=== PATIENT | female | born 1955 | race Caucasian/White ===

== ENCOUNTER → 2019-08-13 12:00 | Outpatient (CLI) | payer MEDICARE | END | disposition home or self-care (01) | LOC: D.HCCARDIO 12:00 | PROVIDERS: ATTEND Internal Medicine Cardiovascular Disease | DX: I20.9 Angina pectoris, unspecified (principal) ==

== ENCOUNTER 2019-08-29 11:41 | Outpatient (CLI) | payer MEDICARE ==
[~2019-08-29] VITALS: Ht 160 cm; Wt 77.3 kg
--- NOTE | ~2019-08-29 | HEMODYNAMI ---
PATIENT:MATT SANCHEZ MEDICAL RECORD: [id number] : 51 LOCATION:[facility] ADMISSION DATE: 08/29/19 Generatedon:08/29/201914:38 Patient name: MATT SANCHEZ Patient #: [id number] SSN: : 1955 Date of study: 08/29/2019 Page: Of Hemodynamic Procedure Report Patient Data Patient Demographics Procedure consent was obtained First Name: MATT Gender: Female Last Name: DANIEL : 1955 Patient #: [id number] Age: 64 year(s) Race: Unknown SSN: [id number] Additional ID: [id number] Contact details [address]: [address] [place] [address] State: [place] City: [place] Zip code: [address] Past Medical History Allergies Allergen Reaction Date Comments Reported Other allergy 08/29/2019 sulfa Admission Admission Data Admission Date: 08/29/2019 Admission Time: 11:41 Arrival Date: 08/29/2019 Arrival Time: 0:00 Admit Source: Other Insurance Payor: Medicare [facility] #: [id number] Height (in.): 64 BSA: 1.83 (m2) Height (cm.): 162.56 BMI: 29.35 (kg/m2) Weight (lbs.): 171 Weight (kg.): 77.56 Lab Results Lab Result Date: 08/29/2019 Lab Result Time: 0:00 Biochemistry Name Units Result Min Max BUN mg/dl 14 --(--*-)-- 7 18 Creatinine mg/dl 0.8 --(-*--)-- 0.6 1.3 eGFR ml/min 76.17406 *-(----)-- 90 120 NONAFRICAN Procedure Procedure Types Cath Procedure Diagnostic Procedure LHC LHC w/Coronaries Sedation Charges Moderate Sedation up to 15 minutes Procedure Description Procedure Date Procedure Date: 08/29/2019 Procedure Start Time: 14:22 Procedure End Time: 14:36 Procedure Staff Name Function Javier Carnes MD Performing Physician Dunia Berrios RT Monitor Ari Schmitt RN Nurse John Mortensen RT Scrub Indication Chest pain Procedure Data Cath Procedure Fluoroscopy Diagnostic fluoroscopy Total fluoroscopy Time: 2.1 time: 2.1 min min Diagnostic fluoroscopy Total fluoroscopy dose: 592 dose: 592 mGy mGy Contrast Material Contrast Material Type Amount (ml) Isovue 300 56 Entry Location Entry Primary Successful Side Size Upsize Upsize Entry Closure Flynn ccessful Closure Location (Fr) 1 (Fr) 2 (Fr) Remarks Device Remarks Radial Right 6 Fr Mechanical artery Short Compression Estimated blood loss: 10 ml Diagnostic catheters Device Type Used For End Catheter Placement DIAGNOSTIC [place] 110cm 5 Procedure Fr catheter ([id number]) Procedure Complications No complications Procedure Medications Medication Administration Route Dosage 0.9% NaCl I.V. 100 ml/hr Oxygen etCO2 Nasal cannula 2 l/min Heparin Flush Bag added to field 1 bags (1000units/500ml NS) Lidocaine 2% added to field 20 Radial Cocktail added to field 1 syringe (Verapamil 2mg/Nitro 400mcg/Heparin 1500units) Versed I.V. 2 mg Fentanyl I.V. 100 mcg Versed I.V. 1 mg Radial Cocktail I.A. 1 syringe (Verapamil 2mg/Nitro 400mcg/Heparin 1500units) Hemodynamics Rest BSA: 1.83 (m2) O2 Consumption: Estimated: 182.51 (ml/min) O2 Consumption indexed : Estimated:99.73 (ml/min/m) Heart Rate: 87 (bpm) Pressure Samples Time Site Value (mmHg) Purpose Heart Use Rate(bpm) 14:26 LV 126/-9,8 Snapshot 87 Gradients Valve Time Site Site Mean SEP/DFP Peak To Heart Use 1 2 (mmHg) (sec/min) Peak Rate (mmHg) (bpm) Aortic 14:27 LV AO 97 Snapshots Pre Cath Intra NCS Post Cath Vital Signs Time Heart Resp SPO2 etCO2 NIBP (mmHg) Rhythm Pain Sedation Rate (ipm) (%) (mmHg) Status Level (bpm) 14:11:36 66 16 99 43.3 148/84(120) NSR 0 (11) 10(A) , No pain 14:15:50 75 11 96 44.1 140/83(113) NSR 0 (11) 10(A) , No pain 14:20:04 72 16 92 28.4 130/69(87) NSR 0 (11) 10(A) , No pain 14:24:11 78 12 91 29.1 136/81(111) NSR 0 (11) 9(A) , No pain 14:28:21 92 12 90 0 123/73(92) NSR 0 (11) 9(A) , No pain 14:32:31 90 13 94 41.8 129/68(93) NSR 0 (11) 10(A) , No pain 14:36:39 86 20 96 44.8 125/78(98) NSR 0 (11) 10(A) , No pain Medications Time Medication Route Dose Verified Delivered Reason Notes Effectiveness by by 14:09:53 0.9% NaCl I.V. 100 Ari Ari Per ml/hr Keshia Schmitt physician RN RN 14:10:02 Oxygen etCO2 2 l/min Ari Ari for low 02 Nasal Lorigan Keshia sats cannula RN RN 14:10:12 Heparin Flush added 1 bags Ari Ari used for Bag to Lorevelia Schmitt procedure (1000units/500ml field RN RN NS) 14:10:20 Lidocaine 2% added 20ml Ari Ari for local to vial Lorigan Lorigan anesthetic RN RN 14:10:32 Radial Cocktail added 1 Ari Ari used for (Verapamil to syringe Deniseigan Keshia procedure 2mg/Nitro field FLORES RN 400mcg/Heparin 1500units) 14:21:13 Versed I.V. 2 mg Ari Ari for sedation Keshia Schmitt RN RN 14:21:21 Fentanyl I.V. 100 mcg Ari Ari for sedation Keshia Schmitt RN RN 14:22:53 Versed I.V. 1 mg Ari Ari for sedation Keshia Schmitt RN RN 14:26:26 Radial Cocktail I.A. 1 Ari Javier for (Verapamil syringe Keshia nichole 2mg/Nitro RN 400mcg/Heparin 1500units) Procedure Log Time Note 13:59:01 Arrival Date: 08/29/2019 12:00:00 AM 13:59:30 Admit Source: Other 13:59:34 Insurance Payor : Medicare 13:59:47 Patient Height : 64 inches 13:59:53 Patient Weight : 171 lbs 14:03:01 Lab Result : BUN 14 mg/dl 14:03:01 Lab Result : eGFR NONAFRICAN 76.26807 ml/min 14:03:01 Lab Result : Creatinine 0.8 mg/dl 14:03:19 Diagnostic Cath Status : Elective 14:03:30 Indication : Chest pain 14:03:45 Procedure Status Elective Heart Cath (OP). 14:03:48 Ari Schmitt RN sent for patient. Start room use. 14:03:49 Time tracking: Regular hours (M-F 7:00 - 5:00) 14:03:55 Plan of Care:Hemodynamics will remain stable., Cardiac rhythm will remain stable., Comfort level will be maintained., Respiratory function will remain adequate., Patient/ family verbilizes understanding of procedure., Procedure tolerated without complication., Recovers from procedure without complications.. 14:04:01 Patient received from Pre/Post Procedure Room to CCL 2 Alert and oriented. Tansferred to table in Supine position. 14:04:04 Signed procedure consent form obtained from patient. 14:04:05 Warm blankets applied, and garcia hugger turned on for patient comfort. 14:04:05 Correct patient and procedure confirmed by team. 14:04:06 ECG and BP/O2 sat monitors applied to patient. 14:04:39 H&P Date Dictated: 08/06/2019 Within 30 days and on chart., H&P Addendum completed by physician on day of procedure. (MUST COMPLETE FOR ALL OUTPATIENTS). 14:04:40 Pre-procedure instructions explained to patient. 14:04:42 Family in waiting room. 14:04:44 Patient NPO since Midnight. 14:04:57 Patient allergic to Other allergysulfa 14:05:00 Is the patient allergic to Iodine/contrast media? No. 14:05:02 Was the patient premedicated? Yes 14:05:03 Is patient on blood thinner?No 14:05:05 Patient diabetic? No. 14:05:10 Snore? Yes 14:05:12 Sleep apnea? No 14:05:21 Patient pain scale 0/10 ?. 14:05:28 IV patent on arrival in left forearm with 0.9% NaCl at [facility]. 14:05:31 Lab results completed and on chart. 14:05:36 Right Radial & Right Groin area was prepped with chlora-prep and draped in sterile fashion 14:05:37 Alarms reviewed by R. N. 14:05:37 Sharps counted by scrub and verified by R.N. 14:09:53 0.9% NaCl 100 ml/hr I.V. was administered by Ari Schmitt RN; Per physician; Verbal order read back and verified. 14:10:02 Oxygen 2 l/min etCO2 Nasal cannula was administered by Ari Schmitt RN; for low 02 sats; Verbal order read back and verified. 14:10:12 Heparin Flush Bag (1000units/500ml NS) 1 bags added to field was administered by Ari Schmitt RN; used for procedure; Verbal order read back and verified. 14:10:20 Lidocaine 2% 20ml vial added to field was administered by Ari Schmitt RN; for local anesthetic; Verbal order read back and verified. 14:10:32 Radial Cocktail (Verapamil 2mg/Nitro 400mcg/Heparin 1500units) 1 syringe added to field was administered by Ari Schmitt RN; used for procedure; Verbal order read back and verified. 14:10:35 Vital chart was started 14:13:33 Physician arrived 14:13:33 --------ALL STOP TIME OUT------ 14:13:34 Final Timeout: patient, procedure, and site verified with staff and physician. All members of the team are in agreement. 14:13:36 Right Radial & Right Groin site verified by team. 14:13:41 Fire Safety Assessment: A--An alcohol-based skin anteseptic being used preoperatively., C--Open oxygen or nitrous oxide is being used., D--An ESU, laser, or fiber-optic light is being used. 14:13:47 Physical assessment completed. ASA score P 3 - A patient with severe systemic disease as per Javier Carnes MD. 14:13:50 2) 60-89 Mildly reduced kidney function, and other findings (as for stage 1) point to kidney disease. 14:13:54 Maximum allowable contrast dose (3.7 X eGFR X 0.75)210 ml. 14:13:59 Sedation plan: IV Moderate Sedation Medication:Versed, Fentanyl 14:14:03 Use device set Radial Dx or PCI 14:14:05 ACIST Syringe (56179) opened to sterile field. 14:14:05 Medline Cath Pack ([id number]) opened to sterile field. 14:14:06 Bag Decanter (2002S) opened to sterile field. 14:14:07 ACIST Hand Control (05530) opened to sterile field. 14:14:07 ACIST Manifold (93342) opened to sterile field. 14:14:09 MBrace Wrist Support ([id number]) opened to sterile field. 14:14:10 NEEDLE Cook 21G 4cm Radial (G00845) opened to sterile field. 14:14:12 EMERALD Guide Wire (502-751) opened to sterile field. 14:14:14 SHEATH 6FR RAIN (4471186) opened to sterile field. 14:21:13 Versed 2 mg I.V. was administered by Ari Schmitt RN; for sedation; Verbal order read back and verified. 14:21:21 Fentanyl 100 mcg I.V. was administered by Ari Schmitt RN; for sedation; Verbal order read back and verified. 14::44 Procedure started. 14::44 Full Disclosure recording started 14:22:53 Versed 1 mg I.V. was administered by Ari Schmitt RN; for sedation; Verbal order read back and verified. 14:22:55 Local anesthetic to right radial artery with Lidocaine 2% by Javier Carnes MD.INITIAL ACCESS ONLY 14:26:23 A 6 Fr Short sheath was inserted into the Right Radial artery 14:26:26 Radial Cocktail (Verapamil 2mg/Nitro 400mcg/Heparin 1500units) 1 syringe I.A. was administered by Javier Carnes MD; for vasodilation; Verbal order read back and verified. 14:26:36 A DIAGNOSTIC [place] 110cm 5 Fr catheter (196729) was advanced over the wire and used for Procedure. 14:27:07 EF : 60 % 14:27:39 LCA angiography performed. 14:30:26 RCA angiography performed. 14:32:59 Catheter removed. 14:33:04 ZEPHYR REGULAR TR BAND (493000) opened to sterile field. 14:33:21 Sheath removed intact; hemostasis achieved with Mechanical Compression to the Right Radial artery. 14:33:31 Procedure ended.(Physican Out) 14:33:38 Fluoroscopy time 02.10 minutes. 14:33:42 Flurop Dose total: 592 14:33:42 Fluoroscopy dose: 592 mGy 14:33:47 Dose Area Product 84363 mGy/cm. 14:33:52 Contrast amount:Isovue 300 56ml. 14:34:05 Maximum allowable dose exceeded? No. 14:34:08 Sharps counted by scrub and verified by R.N. 14:34:13 [place] band inflated with 56cc of air. 14:34:14 Insertion/operative site no bleeding no hematoma. 14:34:34 Post right radial artery:stable 14:34:45 Post-procedure physical assessment completed. ASA score P 3 - A patient with severe systemic disease as per Javier Carnes MD. 14:34:49 Post procedure rhythm: sinus rhythm 14:34:52 Estimated blood loss: 10 ml 14:34:54 Post procedure instruction explained to patient.Patient verbalizes understanding. 14:35:23 Procedure type changed to Cath procedure, Diagnostic procedure, LHC, LHC w/Coronaries, Sedation Charges, Moderate Sedation up to 15 minutes 14:35:25 Procedure and supply charges have been captured, reviewed, submitted and are correct. 14:35:48 Procedure Complication : No complications 14:35:53 Vital chart was stopped 14:35:56 [facility] Findings: MVD- MD will discuss options w/ pt 14:36:05 See physician's report for complete and final results. 14:36:07 Report given to Pre/Post Procedure Room. 14:36:12 Patient transfered to Pre/Post Procedure Room with Stretcher. 14:36:14 Procedure ended. 14:36:14 Full Disclosure recording stopped 14:36:29 End room use (Document Last) 14:36:51 End room use (Document Last) 14:37:28 End room use (Document Last) Device Usage Item Name Manufacture Quantity Catalog Hospital Part Current Minima l Lot# / Number Charge Number Stock Stock Serial# Code ACIST Acist 1 99650 506146 544190 [id number] 20 Syringe Medical (69700) Systems Inc Medline Medline 1 [id number] 453166 07878 588878 5 Cath Pack ([id number]) Bag Microtek 1 249706 12364 905497 5 Decanter Medical Inc. () ACIST Hand Acist 1 91437 575054 175986 043444 5 Control Medical (09491) Systems Inc ACIST Acist 1 78219 497046 024484 897182 5 Manifold Medical (73295) Systems Inc MBrace Advanced 1 140-0250-00 324686 08344 835860 5 Wrist Vascular Support Dynamics (313559272) NEEDLE Cook Cook Medical 1 D82437 697892 194665 854320 5 21G 4cm Radial (T85896) EMERALD Cardinal 1 171-485 904718 011546 467912 5 Guide Wire Health (397-219) SHEATH 6FR Cardinal 1 4976489 220630 8872343 891012 5 RAIN Health (6381172) DIAGNOSTIC Terumo 1 40-4456 281958 223567 129825 5 [place] 110cm 5 Fr catheter (910138) ZEPHYR Cardinal 1 589940 038562 6717888 686995 5 REGULAR TR Health BAND (801598) Signature Audit Nunn Stage Time Signature Unsigned Intra-Procedure 08/29/2019 Dunia Berrios 2:36:51 PM RT(R) Intra-Procedure 08/29/2019 Ari 2:37:28 PM Keshia RN Intra-Procedure 08/29/2019 Javier Carnes MD 2:37:57 PM Signatures Performing Physician : Signature : Javier Carnes MD Date : Time : Monitor : Dunia Berrios Signature : RT Date : Time : Nurse : Ari Schmitt Signature : RN Date : Time : [facility] [address], [place] [address]
[2019-08-29] MEDS ORDERED: LEVOTHYROXINE50 MCG PO (11:59)
[2019-08-29] MEDS ORDERED: LISINOPRIL5 MG PO (12:00)
[2019-08-29] MEDS ORDERED: TRAZODONE HCL150 MG PO (12:00)
[2019-08-29] MEDS ORDERED: ZOLOFT100 MG PO (12:00)
[2019-08-29] MEDS ORDERED: OMEPRAZOLE20 M1 PO (12:01)
[2019-08-29] MEDS ORDERED: LOVASTATIN40 MG PO (12:01)
[2019-08-29 12:45] VITALS: BP 145/95; BMI 30.1
[2019-08-29 12:55] LABS: ALT (SGPT) 39 U/L (10-68); CALC OSMOLALITY 282 mosm/kg (275-300); CALCIUM 8.6 mg/dL (8.5-10.1); CARBON DIOXIDE 26.2 mmol/L (21.0-32.0); CHLORIDE - SERUM 106 mmol/L (98-107); CHOL - HDL RATIO 3.6 ratio (2.3-4.1); CHOLESTEROL, TOTAL 214 mg/dL (0-200); CREATININE - SERUM 0.8 mg/dL (0.6-1.3); GLUCOSE 108 mg/dL (74-106); HDL CHOLESTEROL 59 mg/dL (32-96); LDL CHOLESTEROL 131 mg/dL (0-100); LDL-HDL RATIO 2.2 ratio (1.5-3.5); POTASSIUM - SERUM 3.9 mmol/L (3.5-5.1); SODIUM 141 mmol/L (136-145); TRIGLYCERIDE 120 mg/dL (30-200); UREA NITROGEN 14 mg/dL (7-18); eGFR NON AFRICAN AMERICAN 76 mL/min (90-120)
[2019-08-29 13:08] LABS: BASOPHILS 0.5 % (0-2); HEMOGLOBIN 13.6 g/dL (12-16); LYMPHOCYTES 33.3 % (15-50); MCH 30.5 pg (26.0-34.0); MCHC 32.4 g/dL (31.0-37.0); MCV 94.2 fL (80.0-100.0); MEAN PLATELET VOLUME 9.6 fL (7.4-10.4); MONOCYTES 8.5 % (2-11); NEUTROPHILS 55.7 % (40-80); PLATELET COUNT 247 10x3/uL (130-400); RBC 4.46 10x6/uL (4.00-5.40); RDW 12.1 % (11.5-14.5); WBC 5.6 10x3/uL (4.8-10.8)
--- NOTE | 2019-08-29 14:45 | NUR ---
PT REC'D TO ROOM 9 VIA STRETCHER FROM DIRECTOR OF GLOBAL SALES. MONITORS ESTAB. PT DROWSY. SEE CERTIFIED MORTICIAN. ALARMS ON AND C/L IN REACH.
--- NOTE | 2019-08-29 15:00 | NUR ---
DR. DORADO IN TO UPDATE PT AND . DR. LAURA NURSE NOTIFIED OF CONSULT. R WRIST SITE C/D/I, NO S/S BLEEDING OR HEMATOMA.
--- NOTE | 2019-08-29 15:30 | NUR ---
R WRIST SITE C/D/I. PULSES PALP. HOB UP PER PT REQUEST. REFUSED SANDWICH AT THIS TIME. AT BS.
--- NOTE | 2019-08-29 15:45 | NUR ---
R WRIST SITE C/D/I, HAND WARM, PULSES PALP. VSS. PT DENIES NEEDS.
--- NOTE | 2019-08-29 16:00 | NUR ---
5CC AIR REMOVED FROM Z BAND, NO S/S BLEEDING OR HEMATOMA. VSS. PT DENIES NEEDS.
--- NOTE | 2019-08-29 16:15 | NUR ---
TOTAL OF 7 CC REMOVED FROM Z BAND, NO S/S BLEEDING. VSS. R HAND WARM WITH BRISK CAP REFILL.
--- NOTE | 2019-08-29 16:19 | NUR ---
DR. LAURA IN TO SEE PT.
--- NOTE | 2019-08-29 16:30 | NUR ---
ALL AIR REMOVED FROM Z BAND, NO S/S BLEEDING - WILL CONT CLOSE MONITORING. PT HAS SPOKEN WITH DR. LAURA AND HIS NURSE RE: SURGERY, WILL FOLLOW UP WITH THEM.
--- NOTE | 2019-08-29 16:45 | NUR ---
R WRIST SITE C/D/I. ZBAND REMOVED AND DSG APPLIED. PIV D/C'D INTACT, DSG APPLIED. PT ALLOWED UP TO GET DRESSED WITH ASSISTING.
[2019-08-29 16:48] VITALS: Ht 160 cm; Wt 77.3 kg
--- NOTE | 2019-08-29 16:50 | NUR ---
PT TO BR INDEPENDENTLY.
--- NOTE | 2019-08-29 16:58 | NUR ---
ALL D/C INSTRUCTIONS REVIEWED WITH PT AND . PT VERBALIZES UNDERSTANDING. 1700 - PT D/C'D TO PRIVATE VEHICLE WITH , PT HAS ALL PAPER WORK AND BELONGINGS.
== END 2019-08-29 17:00 | disposition home or self-care (01) ==
LOC: D.CATH 11:41
PROVIDERS: ATTEND Internal Medicine Cardiovascular Disease
DX: I25.119 Atherosclerotic heart disease of native coronary artery with unspecified angina pectoris (principal); Z82.49 Family history of ischemic heart disease and other diseases of the circulatory system; I10 Essential (primary) hypertension; K21.9 Gastro-esophageal reflux disease without esophagitis

== ENCOUNTER 2019-09-06 07:52 | Inpatient (IN) | payer MEDICARE ==
[~2019-09-06] VITALS: Ht 160 cm; Wt 76.1 kg
[~2019-09-06 07:52] MED LIST: LEVOTHYROXINE50 MCG PO; LISINOPRIL5 MG PO; LOVASTATIN40 MG PO; OMEPRAZOLE20 M1 PO; TRAZODONE HCL150 MG PO; ZOLOFT100 MG PO
[2019-09-07 09:37] LABS: BASOPHILS 0.6 % (0-2); EOSINOPHILS 2.5 % (0-7); HEMATOCRIT 43.5 % (36.0-48.0); HEMOGLOBIN 14.2 g/dL (12-16); IMMATURE GRANULOCYTES 0.2 % (0-5); LYMPHOCYTES 41.3 % (15-50); MCH 30.4 pg (26.0-34.0); MCHC 32.6 g/dL (31.0-37.0); MCV 93.1 fL (80.0-100.0); MEAN PLATELET VOLUME 9.4 fL (7.4-10.4); MONOCYTES 7.3 % (2-11); NEUTROPHILS 48.1 % (40-80); PLATELET COUNT 256 10x3/uL (130-400); RBC 4.67 10x6/uL (4.00-5.40); RDW 12.1 % (11.5-14.5); WBC 5.2 10x3/uL (4.8-10.8)
[2019-09-07 09:54] LABS: APTT 27.3 SECONDS (22.8-39.4); INR 0.94 (0.85-1.17); PROTIME 12.6 SECONDS (11.6-15.0)
[2019-09-07 10:06] LABS: ALBUMIN 4.2 g/dL (3.4-5.0); ANION GAP 12.1 mmol/L (8-16); BILIRUBIN - TOTAL 0.49 mg/dL (0.2-1.3); CALCIUM 8.9 mg/dL (8.5-10.1); CARBON DIOXIDE 28.1 mmol/L (21.0-32.0); PHOSPHOROUS 3.7 mg/dL (2.5-4.9); POTASSIUM - SERUM 4.2 mmol/L (3.5-5.1); PROTEIN - SERUM 7.7 g/dL (6.4-8.2); T4 THYROXIN - FREE 1.14 ng/dL (0.76-1.46); THYROID STIMULATING HORMONE 1.09 uIU/mL (0.36-3.74); URIC ACID 3.4 mg/dL (2.6-7.2)
[2019-09-07 10:25] LABS: BILIRUBIN NEGATIVE (NEGATIVE); GLUCOSE NEGATIVE (NEGATIVE); KETONE NEGATIVE (NEGATIVE); NITRITE NEGATIVE (NEGATIVE); SPECIFIC GRAVITY 1.025 (1.005-1.020); UROBILINOGEN NORMAL (NORMAL)
[2019-09-07 10:27] LABS: BACTERIA FEW /hpf (NEGATIVE); EPITHELIAL CELLS 0-5 /hpf (0-5); RED CELLS - URINE RARE /hpf (0-5); WHITE CELLS - URINE 0-5 /hpf (NEGATIVE)
[2019-09-11] VITALS (41 sets, daily range): BP systolic 96–150; BP diastolic 49–77; BMI 29.6; BMI 31.2
[2019-09-11 08:39] LABS: BACTERIA FEW /hpf (NEGATIVE); BILIRUBIN NEGATIVE (NEGATIVE); EPITHELIAL CELLS 0-5 /hpf (0-5); GLUCOSE NEGATIVE (NEGATIVE); KETONE NEGATIVE (NEGATIVE); NITRITE NEGATIVE (NEGATIVE); RED CELLS - URINE 0-5 /hpf (0-5); SPECIFIC GRAVITY 1.015 (1.005-1.020); UROBILINOGEN NORMAL (NORMAL); WHITE CELLS - URINE RARE /hpf (NEGATIVE)
[2019-09-11 08:40] LABS: HYALINE CAST RARE /lpf (NONE SEEN)
--- NOTE | 2019-09-11 14:50 | NUR ---
1350 PT RECIEVED TO ROOM ETT 7.5 22 AT LIP PLACED ON VENT BY RT, R IJ CVL DRESSING CDI, SEE IV FLOWSHEET, MIDSTERNAL AND SUBSTERNAL DRESSINGS CDI WITH SUBSTERNAL SIDNEY DRAIN COMPRESSED, CTX2 20CM SUCTION NO AIR LEAK, TPM WIRES ATTACHED TO TPM, TPM OFF, R RADIAL A LINE ZEROED, GOOD WAVEFORM, WRIST PROTECTOR IN PLACE, RLE HARVEST SITES WITH COBAN GROIN TO ANKLE, CRITICORE LEOS DRAINING YELLOW URINE, LLE WITH TEDS/SCDS IN PLACE ABGS CALLED TO DR LAURA, KCL TREATED PER PROTOCOL
--- NOTE | 2019-09-11 15:30 | NUR ---
SPOKE WITH DR AG NURSE HOLLY ABOUT HOLDING AMIODARONE PT DID NOT COME OUT OF OR WITH IT
--- NOTE | 2019-09-11 16:23 | NUR ---
PTS IN ROOM AND DENIES ALLQUESTIONS, SPOKE WITH DR LAURA
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
--- NOTE | 2019-09-11 17:08 | NUR ---
ABGS NIF AND VITAL CALLED TO DR LAURA, ORDERS TO EXTUBATE TO CPAP, RT AWARE
--- NOTE | 2019-09-11 17:24 | NUR ---
PT EXTUBATED AND RESTRAINTS REMOVED 1719, DEMONSTRATED SPLINTING WITH PILLOW, WEAK COUGH, PERFORMED IS WITH POOR EFFORT, 250, PLACED ON BIPAP BY RT
--- NOTE | 2019-09-11 19:00 | NUR ---
PT AOX4, FOLLOWS COMMANDS. BIPAP IN PLACE AT 30%, SPO2 96. LUNG SOUNDS CLEAR/DIMINISHED. S1S2 HEARD, PERIPHERAL PULSES PRESENT. DEVIN TO R RADIAL WITH GOOD WAVEFORM. SUBSTERNAL CT X2 INTACT WITH BLODDY DRAINAGE, L SIDNEY INTACT AND COMPRESSED. R LEG WITH COBAN FROM GROIN TO ANKLE. PT POSITIONED FOR COMFORT, PROMINENCES BRIDGED. ROOM VISIBLE FROM NURSES STATION. CALL LIGHT WITHIN PT REACH.
--- NOTE | 2019-09-11 21:05 | NUR ---
HS MEDS GIVEN, PT TOLERATED WELL. REPOSITIONED FOR COMFORT WITH PROMINENCES BRIDGED. COUGH/DB - WEAK COUGH DESPITE TEACHING/ENCOURAGEMENT. PT COMPLETES I/S AFTER TEACHING PROVIDED ON IMPORTANCE, REACHING 250 X10. ORAL CARE PROVIDED. VSS, ROOM VISIBLE FROM NURSES STATION. CPOC.
--- NOTE | 2019-09-11 22:22 | NUR ---
WITH ENCOURAGEMENT PT COUGH/DB, WEAK COUGH. PT TEACHING REGARDING IMPORTANCE OF INCENTIVE SPIROMETER PROVIDED AGAIN AT THIS TIME. PT REACHING 250 X10 WITH ENCOURAGEMENT.
--- NOTE | 2019-09-11 23:00 | NUR ---
DANGLED AT BEDSIDE, COUGH/DB WITH ENCOURAGEMENT. POSITIONED BACK IN BED WITH PROMINENCES BRIDGED. REASSESMENT COMPLETE, NO NEW CHANGES AT THIS TIME. CALL LIGHT WITHIN PT REACH. ROOM VISIBLE FROM NURSES STATION. CPOC.
[2019-09-12] VITALS (48 sets, daily range): BP systolic 89–120; BP diastolic 45–71; Ht 160 cm; Wt 76.1 kg
--- NOTE | 2019-09-12 01:12 | NUR ---
PRN PAIN MEDICATION PROVIDED UPON REQUEST PAIN 10/18. FRESH WATER TO BEDSIDE. COUGH/DB ENCOURAGED, POOR EFFORT. I/S COMPLETED REACHING 250 X10.
--- NOTE | 2019-09-12 04:00 | NUR ---
COMPLETE CHG BATH AND LINEN CHANGE PROVIDED. UP TO CHAIR WITH RN X2 ASSIST. COUGH/DB COMPLETED, I/S COMPLETED REACHING 500 X10.
[2019-09-12 05:43] LABS: HEMATOCRIT 34.5 % (36.0-48.0); HEMOGLOBIN 10.9 g/dL (12-16); MCH 30.4 pg (26.0-34.0); MCHC 31.6 g/dL (31.0-37.0); MCV 96.1 fL (80.0-100.0); MEAN PLATELET VOLUME 9.5 fL (7.4-10.4); RBC 3.59 10x6/uL (4.00-5.40); RDW 12.7 % (11.5-14.5); WBC 11.5 10x3/uL (4.8-10.8)
[2019-09-12 05:46] LABS: ALBUMIN 3.3 g/dL (3.4-5.0); ANION GAP 12.5 mmol/L (8-16); BILIRUBIN - TOTAL 0.35 mg/dL (0.2-1.3); CALCIUM 7.1 mg/dL (8.5-10.1); CARBON DIOXIDE 26.8 mmol/L (21.0-32.0); CREATININE - SERUM 1.1 mg/dL (0.6-1.3); POTASSIUM - SERUM 4.3 mmol/L (3.5-5.1); PROTEIN - SERUM 5.8 g/dL (6.4-8.2)
--- NOTE | 2019-09-12 07:00 | NUR ---
RECEIVED BEDSIDE REPORT ON PATIENT AND ASSUMED CARE. PATIENT ALERT AND ORIENTED X 4, SITTING UP IN BEDSIDE CHAIR, VSS. RATE PAIN 8/10, INCREASED WHEN TAKING DEEP BREATHS, IS - 300, LEOS CATH IN PLACE WITH 0 ML OUTPUT FOR 7 AM NOTED. CHEST TUBES X 2 TO 20 CM WALL SUCTION, A- 16 ML OF BLOODY DRAINAGE NOTED, P - 0 ML DRAINAGE NOTED AND SIDNEY DRAIN WITH 10 ML OF BLOODY DRAINAGE NOTED. RIGHT IJ IN PLACE WITH PLASMOLYTE INFUSING AT 100 ML/HR AND ZINACEF AT 12.8 ML/HR. CM - ST RATE OF 104 NO ECTOPY NOTED. BBS - CLEAR BUT DIMISHED, SPO2 - 97% ON 4 LPM VIA NC. DRESSINGS MIDSTERNAL AND SUBSTERNAL, C/D/I. RLE DRESSING IN PLACE WITH COBAN WRAP, C/D/I. HEAD TO TOE ASSESSMENT COMPLETED.
--- NOTE | 2019-09-12 08:00 | NUR ---
ASSISTED BACK TO BED FOR DR. LAURA TO REMOVE CHEST TUBES.
--- NOTE | 2019-09-12 08:10 | OP ---
PATIENT NAME: MATT SANCHEZ MEDICAL RECORD: [id number] :51 LOCATION:D.CVI D.CV04 ADMISSION DATE:09/11/19 SURGEON: JACE LAURA MD DATE OF OPERATION: 09/11/2019 SURGEON: Jace Laura MD PROCEDURE PERFORMED: 1. Coronary bypass graft times 3 (left internal mammary to first diagonal, reverse saphenous vein graft from aorta to first obtuse marginal, aorta to right coronary artery). 2. Endoscopic saphenous vein harvest. PREOPERATIVE DIAGNOSIS: Coronary artery disease. POSTOPERATIVE DIAGNOSIS: Coronary artery disease. ANESTHESIA: General endotracheal anesthesia. ESTIMATED BLOOD LOSS: Total cardiopulmonary bypass with Cell Saver retransfusion. COMPLICATIONS: None. SPECIMENS: None. CONDITION: Stable. DISPOSITION: CV ICU. OPERATIVE FINDINGS: 1. Small thin greater saphenous vein from the mid-thigh to the knee. The best portion was used for the right coronary artery graft. The right internal mammary artery was not used due to probable competitive flow and presumed small size as the left internal mammary artery was only 2-3 mm. The LAD was a small intramyocardial vessel that only came out at the last one-third and it was followed back deep into the intramyocardium, but was only a 1.25 mm vessel. The bifurcating large diagonal ran parallel and was much larger anastomosed at the bifurcation where it was a 1.75 mm vessel utilizing the left internal mammary artery. This vessel had severe disease at the site of anastomosis and proximally. First obtuse marginal is 1.5 mm vessel with severe disease. 2. Right coronary 2.0 mm vessel with moderate disease. 3. 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 OPERATIVE INDICATION: Coronary artery disease. DESCRIPTION OF PROCEDURE: The patient was brought to the operating suite. General anesthesia was obtained, the patient was prepped and draped. Greater saphenous vein harvested endoscopically from right lower extremity. Side branch divided with electrocautery. Vessel ligated proximally and distally removed. Side branches were tied. The leg was closed in 2 layers. Median sternotomy incision was made. Subcutaneous tissues was divided by electrocautery. The sternum was divided with a saw. The left hemisternum was elevated. Left pleural cavity was entered. Left internal mammary was taken OPERATIVE REPORT [id number] MATT SANCHEZ down as a pedicle graft. Sternal retractor was placed. Pericardium was opened. Heparin was given. Aorta was cannulated. Dual stage venous cannula was inserted. The patient was placed for cardiopulmonary bypass. The sites for distal anastomosis were selected. The patient was cooled. Crossclamp was placed. Cardioplegia given antegrade and this repeated at 15 to 20 minutes on the crossclamp time. Distal anastomosis was performed in standard technique. Proximal anastomosis with single cross-clamp technique. Aortic root de-aired, flow restored, single suture, one of the proximal and one on the distal. The patient resumed a spontaneous rhythm. Atrial and ventricular pacing wires were placed, fully rewarmed, weaned for cardiopulmonary bypass, and was stable. The patient was decannulated. Aortic cannulation site was oversewn with a nonpledgeted Prolene suture. The protamine was given. Thorough irrigation was undertaken. Grafts lay appropriately. Good Doppler signal in the internal mammary artery. The hemostasis was ensured. Drains were placed in mediastinal left pleural cavity. Pericardial flap reapproximated. Left chest was evacuated as much as possible and a drain placed posteriorly. The internal mammary harvest site was without bleeding. Sternum was closed with wires. Fascia was closed. Subcutaneous tissue was closed. Skin was closed. Dermabond was placed. The needle and sponge counts were reported as correct. The patient was taken to ICU in stable condition. TRANSINT:[id number] Voice Confirmation ID: [id number] DOCUMENT ID: [id number] JACE LAURA MD at 0810 CC: FUAD DORADO M.D. and MALCOM MARTINEZ MD [id number] DICTATION DATE: 09/11/19 1610 COVERED BUTTON MAKER: 09/12/19 0317 ADM IN [facility] [address] [place] [address]
--- NOTE | 2019-09-12 08:15 | NUR ---
DR. LAURA AT ROOM UPDATED AND EXAMINES PATIENT, VSS. REMOVES CT'S, TPM WIRES IN PLACE AND SIDNEY DRAIN REMAINS, REDRESSED WITH 4X4 AND TEGADERM WITH BETADINE OINTMENT.
--- NOTE | 2019-09-12 08:40 | NUR ---
MORNING MEDS PER MAR. VSS.
--- NOTE | 2019-09-12 09:14 | NUR ---
PATIENT RESTING QIETLY, EYES CLOSED. VSS.
--- NOTE | 2019-09-12 11:20 | NUR ---
REASSESSMENT COMPLETED. VSS. ART LINE DISCONTINUED, DIRECT PRESSURE HELD FOR 3 MINUTES AND DRESSED WITH BETADINE, 2X2 AND TEGADERM DRESSING.
--- NOTE | 2019-09-12 12:21 | NUR ---
PATIENT RESTING QUIETLY, VSS. SPOKE TO ON TELEPHONE UPDATED AND QUESTIONS ANSWERED.
--- NOTE | 2019-09-12 12:32 | NUR ---
PATIENTS HR UP TO 130'S APPEARS TO BE A-FIB, HEIDI RN WITH DR. LAURA NOTIFIED AND 12 LEAD ECG COMPLETED.
--- NOTE | 2019-09-12 13:30 | NUR ---
PATIENT RESTING QUIETLY IN BED. HR 114. NO NEEDS AT THIS TIME.
--- NOTE | 2019-09-12 13:33 | NUR ---
DR. LAURA AT ROOM UPDATED AND EXAMINES PATIENT. TO GIVE LOADING DOSE OF AMIODARONE AND THE AMIODARONE GTT AT 0.5 MG/HR. ALSO TO START LOW DOSE NEOSYNEPHRINE GTT TO KEEP SYSTOLIC BP BETWEEN 115-120.
--- NOTE | 2019-09-12 16:12 | NUR ---
PATIENT GIVEN PRN PAIN MED, C/O PAIN 07/19. VSS. FSBS - 151 MG/DL.
--- NOTE | 2019-09-12 16:40 | NUR ---
DR. LAURA AT ROOM UPDATED ON PATIENT CONDITION, CM - ST RATE 102, PLASMOLYTE DECREASED TO 30 ML/HR. VSS.
--- NOTE | 2019-09-12 16:45 | NUR ---
PATIENT STATES DOES NOT WANT DINNER TRAY, ADVISES THAT SHE HAS NO APPETITE.
--- NOTE | 2019-09-12 17:31 | NUR ---
SPOKE TO PATIENTS , UPDATED AND QUESTIONS ANSWERED. VSS.
--- NOTE | 2019-09-12 17:55 | NUR ---
PATIENT DANGLED ON SIDE OF BED, TOLERATED WELL. VSS.
--- NOTE | 2019-09-12 18:19 | NUR ---
DRESSINGS TO BILATERAL LEGS CHANGED. PATIENT ASSISTED BACK TO BED. VSS. NO NEEDS AT THIS TIME.
--- NOTE | 2019-09-12 19:00 | NUR ---
REPORT RECEIVED FROM THE OFF GOING RN. SEE ASSESSMENT IN THE PTS FLOW SHEET. PT SITTING IN BED. PT AFIB RATE 90-110. BP STABLE. RIGHT IJ CVL NOTED. SEE FLOW SHEET FOR DETAILS. MIDSTERNAL AND SUBSTERNAL DRESSING C/D/I. LEFT SIDNEY NOTED COMPRESSED WITH SCANT AMOUNT OF SEROUSANG DRAINGE NOTE. RLE HARVEST SITE INCISIONS WLL APPROXIMATED. SUPERVISOR PRINT LINE AND NO S/SX OF INFECTION NOTED. PT INSTURCTED TO USE HER IS 10X'S/H. PT ONLY ABOUT TO PULL ABOUT 500. WILL CONT TO WORK WITH THE PT ON HER IS. CALL LIGHT IN REACH. WILL CONT POC.
--- NOTE | 2019-09-12 20:00 | NUR ---
PT CONVERTED TO A NSR. VSS. WILL CONT OC.
--- NOTE | 2019-09-12 20:44 | NUR ---
HS MEDICATION GIVEN WITH NO ISSUES. WILL CONT POC.
--- NOTE | 2019-09-12 23:00 | NUR ---
REASSESSMENT COMPLETED SEE FLOW SHEET/MAR
[2019-09-13] VITALS (59 sets, daily range): BP systolic 91–133; BP diastolic 28–91
--- NOTE | 2019-09-13 00:57 | NUR ---
PT WENT INTO UNCONTROLLED AFIB RATE 140-150'S. DR LAURA PAGED. NEW ORDERS TO INCREASE AMIO GTT TO 1MG/H FOR 6 HOURS THEN DECREASE TO 0.5MG/H. GIVE AMIO 150 BOLUS NOW.
--- NOTE | 2019-09-13 02:02 | NUR ---
MAININTING FIB RATE 140-150'S. DR LAURA PAGED. GIVE 2.5 IV LOPRESSOR NOW. CALL IF STILL MAINING HIGH RATE.
--- NOTE | 2019-09-13 02:53 | NUR ---
REMAINS IN AFIB RATE BELOW 120.
[2019-09-13 05:51] LABS: HEMATOCRIT 29.8 % (36.0-48.0); HEMOGLOBIN 9.2 g/dL (12-16); MCHC 30.9 g/dL (31.0-37.0); MCV 97.1 fL (80.0-100.0); MEAN PLATELET VOLUME 9.7 fL (7.4-10.4); RBC 3.07 10x6/uL (4.00-5.40); WBC 12.5 10x3/uL (4.8-10.8)
[2019-09-13 06:22] LABS: ALBUMIN 2.6 g/dL (3.4-5.0); ALKALINE PHOSPHATASE 46 U/L (30-120); BILIRUBIN - TOTAL 0.35 mg/dL (0.2-1.3); CALC OSMOLALITY 278 mosm/kg (275-300); CALCIUM 7.3 mg/dL (8.5-10.1); CARBON DIOXIDE 30.9 mmol/L (21.0-32.0); CHLORIDE - SERUM 105 mmol/L (98-107); GLUCOSE 150 mg/dL (74-106); POTASSIUM - SERUM 4.2 mmol/L (3.5-5.1); PROTEIN - SERUM 5.3 g/dL (6.4-8.2); SODIUM 138 mmol/L (136-145); UREA NITROGEN 13 mg/dL (7-18); eGFR NON AFRICAN AMERICAN 76 mL/min (90-120)
[2019-09-13 06:24] LABS: ALT (SGPT) 59 U/L (10-68); CREATININE - SERUM 0.8 mg/dL (0.6-1.3)
--- NOTE | 2019-09-13 08:09 | TEE ---
PATIENT:MATT SANCHEZ MEDICAL RECORD: [id number] LOCATION:[place] [address] AGE OF PATIENT: 64 ADMISSION DATE: 09/11/19 SEX: F REFERRING PHYSICIAN: INTERPRETING PHYSICIAN: ROCKY OVALLE MD TRANSESOPHAGEAL ECHOCARDIOGRAM Date: 09/11/19 EILEEN CHARGE Y INDICATIONS: CABG PREMEDICATIONS: PATIENT'S RESPONSE PROCEDURE DOPPLER MEASUREMENTS: LVIT LA PA RA LVOT RVOT Asc. Ao AV Gradient Peak AV Mean AV Area MV Gradient Peak MV Mean MV Area INTERPRETATION: LVd: 3.5 cm LVs: 2.8 cm LA: 3.1 cm Doppler: 2-D: COLOR FLOW DOPPLER NORMAL SALINE STUDY: MISCELLANOUS: DIAGNOSIS: PLAN: Senior Business Broker:Dinesh Carnes Photo Equipment Technician: Philly PINA COMMENTS: DATE OF SERVICE: 09/12/2019 PROCEDURE: Intraoperative EILEEN. FINDINGS: Preop shows LVH. LV internal dimensions are normal. Wall motion is normal. EF is greater than or equal to 55%. Aortic valve is tricuspid with good valve excursion. Mitral valve moves well with a trivial MR. Postoperative good contractility of all freitas with normal EF 55%. Aortic and mitral valve both appeared to be normal. Trivial MR only. TRANSESOPHAGEAL ECHOCARDIOGRAM REPORT [id number] MATT SANCHEZ TRANSINT:[id number] Voice Confirmation ID: [id number] DOCUMENT ID: [id number] at 0809 CC: [id number] DICTATION DATE: 09/12/19 1114 AMERICAN SIGN LANGUAGE TEACHER: 09/12/19 2137 ADM IN [place] [id number] [place] [address]
--- NOTE | 2019-09-13 09:27 | NUR ---
0700 PT RECIEVED IN BED ALERT AND ORIENTED VSS DENIES PAIN R IJ CVL DRESSING CDI, SEE IV FLOWSHEET, SIDNEY DRAIN COMPRESSED, TPM WIRES COILED, LEOS DRAINING YELLOW URINE, SEE SHIFT ASSESSMENT FOR DETAILS [address] LAURA HOLDING AM LOPRESSOR REFUSED BREAKFAST TRAY ATTEMPTED TO CALL FOR GLASSES
--- NOTE | 2019-09-13 13:02 | NUR ---
0930 PT IN NSR, DR VALENTÍN LORENZANA NOTIFIED 1030 ASSISTED UP TO CHAIR WITH THERAPY 1200 ATE 25% LUNCH
--- NOTE | 2019-09-13 19:00 | NUR ---
PT ASSESSMENT COMPLETED AT THIS TIME, NO CHANGES NOTED, NO CHNAGES NOTED FROM NURSE REPORT, VSS, PT AAOX4, NO DISTRESS NOTED
--- NOTE | 2019-09-13 20:32 | MORECARE ---
CASE MANAGEMENT DISCHARGE SUMMARY PATIENT: MATT SANCHEZ UNIT: [id number] ADM DATE: 09/11/19 AGE: 64 : 51 SEX: F ROOM/BED: [facility] AUTHOR: LOUIS CORONADO PHYSICIAN: REFERRING PHYSICIAN: VEL LAURA MD DATE OF SERVICE: 09/13/19 Discharge Plan Patient Name: MATT SANCHEZ [facility] [facility] 1955 Planned Disposition: Home Anticipated Discharge Date: Discharge Date: Expected LOS: Initial Reviewer: [email or web address] Initial Review Date: 09/11/2019 Generated: 09/13/19 9:32 pm DCPIA - Discharge Planning Initial Assessment Updated by [email or web address]: Jocy Helton on 09/13/19 8:31 pm * Is the patient Alert and Oriented? Yes * How many steps to enter\exit or inside your home? * PCP Dr. Fabian Horne * Pharmacy [facility] [place] * Preadmission Environment Home with Family * ADLs Independent * Equipment None * List name and contact numbers for known caregivers / representatives who currently or will assist patient after discharge: LIBAN SANCHEZ - SPOUSE - [phone] * Verbal permission to speak to the caregivers and representatives has been obtained from the patient. Yes * Community resources currently utilized None * Additional services required to return to the preadmission environment? No * Can the patient safely return to the preadmission environment? Yes * Has this patient been hospitalized within the prior 30 days at any hospital? No Patient Name: MATT SANCHEZ Page [id number] at 2031 All edits/amendments must be made on the electronic document DICTATION DATE: 09/13/192031 SCOURING MACHINE OPERATOR: GOLDIE 09/13/192031 RPT#: [id number] DC DATE: STATUS: ADM IN [facility] [address] [place] [address] END OF REPORT
--- NOTE | 2019-09-13 20:40 | MORECARE ---
CASE MANAGEMENT DISCHARGE SUMMARY PATIENT: MATT SANCHEZ UNIT: [id number] ADM DATE: 09/11/19 AGE: 64 : 51 SEX: F ROOM/BED: [facility] AUTHOR: IVONNE,DOC PHYSICIAN: REFERRING PHYSICIAN: VEL LAURA MD DATE OF SERVICE: 09/13/19 Discharge Plan Patient Name: MATT SANCHEZ Facility: [facility]:[place] : 1955 Planned Disposition: Home Anticipated Discharge Date: Discharge Date: Expected LOS: Initial Reviewer: [email or web address] Initial Review Date: 09/11/2019 Generated: 09/13/19 9:39 pm Comments DCP- Discharge Planning Updated by [email or web address]: Jocy Helton on 09/13/19 7:[address] Patient Name: MATT SANCHEZ Admission Status: Elective Accout number: [id number] Admission Date: 09-11-2019 : 1955 Admission Diagnosis:ATHSCL HEART DISEASE OF [place] CORONARY ARTERY W/O ANG Attending: VEL LAURA Current LOS: 2 Anticipated DC Date: Planned Disposition: Home Primary Insurance: OUT OF STATE MEDICARE HMO Discharge Planning Comments: CM met with patient to complete initial dc planning assessment. CM educated patient on the CM role and verbal consent given by patient to complete assessment. Patient lives at home with family. Patient is independent. At discharge patient plans to return home and feels this is a safe discharge. CM discussed availability of home health, rehab services, and medical equipment. Patient will have family to transport home. Patient may need walk test if requiring 02. Patient denied known discharge needs at this time. CM will continue to follow and will assist as needed with dc plans/needs. Seed Service Advisor: Jocy Helton DCPIA - Discharge Planning Initial Assessment Updated by [email or web address]: Jocy Helton on 09/13/19 8:31 pm * Is the patient Alert and Oriented? Yes * How many steps to enter\exit or inside your home? * PCP Dr. Fabian Horne * [facility] [place] * Preadmission Environment Home with Family * ADLs Independent * Equipment None * List name and contact numbers for known caregivers / representatives who currently or will assist patient after discharge: LIBAN Martinez SPOUSE - [phone] * Verbal permission to speak to the caregivers and representatives has been obtained from the patient. Yes * Community resources currently utilized None * Additional services required to return to the preadmission environment? No * Can the patient safely return to the preadmission environment? Yes * Has this patient been hospitalized within the prior 30 days at any hospital? No Last DP export: 09/13/19 7:32 pm Patient Name: MATT SANCHEZ Page [phone] at 2040 All edits/amendments must be made on the electronic document DICTATION DATE: 09/13/192038 FIBER OPTIC CENTRAL OFFICE INSTALLER: GOLDIE 09/13/192038 RPT#: [id number] DC DATE: STATUS: ADM IN [facility] [address] [place] [address] END OF REPORT
--- NOTE | 2019-09-13 20:54 | NUR ---
PT GIVEN PO MEDS AT THIS TIME, PT DENIES DISTRESS OR COMPLAINTS, VSS
--- NOTE | 2019-09-13 23:00 | NUR ---
PT REASSESSMENT COMPLETED AT THIS TIME, NO CHANGES NOTED FROM PREVIOUS EXAM, VSS
[2019-09-14] VITALS (46 sets, daily range): BP systolic 91–149; BP diastolic 48–78
--- NOTE | 2019-09-14 01:00 | NUR ---
PT RESTING WITH EYES CLOSED, RESP EVEN AND NON LABORED, VSS, NO DISTRESS NOTED
--- NOTE | 2019-09-14 02:40 | NUR ---
PT ASSISTED UP TO THE BATHROOM, PT STATES THAT SHE HAD TO HAVE A BM, PT STATED THAT SHE ONLY PASSED GAS, PT ASSISTED BACK TO BED, NO DISTRESS NOTED
--- NOTE | 2019-09-14 05:45 | NUR ---
PT ASSISTED UP TO BEDSIDE CHAIR WITH STAND BY ASSIST.
[2019-09-14 05:58] LABS: HEMATOCRIT 25.7 % (36.0-48.0); MCHC 31.1 g/dL (31.0-37.0); MCV 96.3 fL (80.0-100.0); MEAN PLATELET VOLUME 9.2 fL (7.4-10.4); RBC 2.67 10x6/uL (4.00-5.40); RDW 12.9 % (11.5-14.5)
[2019-09-14 06:01] LABS: WBC 7.8 10x3/uL (4.8-10.8)
[2019-09-14 06:12] LABS: ALBUMIN 2.4 g/dL (3.4-5.0); ALKALINE PHOSPHATASE 52 U/L (30-120); ALT (SGPT) 46 U/L (10-68); BILIRUBIN - TOTAL 0.37 mg/dL (0.2-1.3); CALC OSMOLALITY 279 mosm/kg (275-300); CALCIUM 7.6 mg/dL (8.5-10.1); CARBON DIOXIDE 32.7 mmol/L (21.0-32.0); CHLORIDE - SERUM 106 mmol/L (98-107); CREATININE - SERUM 0.6 mg/dL (0.6-1.3); GLUCOSE 125 mg/dL (74-106); POTASSIUM - SERUM 3.8 mmol/L (3.5-5.1); PROTEIN - SERUM 5.2 g/dL (6.4-8.2); SODIUM 140 mmol/L (136-145); UREA NITROGEN 12 mg/dL (7-18); eGFR NON AFRICAN AMERICAN > 90 mL/min (90-120)
--- NOTE | 2019-09-14 10:22 | NUR ---
Nutrition Follow-up: POD 3 CABG. Pt reports appetite improving but still not very good. Likes Ensure. Diet: Cardiac Wt: 179.6# (09/13); 175# (09/11) Last BM: 09/13 Labs noted: Glu 125, Ca 7.6, Alb 2.4 Meds noted: Protonix, Senokot, Colace -Encourage PO intake and honor food preferences within diet restrictions. -+chocolate Ensure with meals. -Monitor wt. -RD following.
--- NOTE | 2019-09-14 19:00 | NUR ---
PT ASSESSMENT COMPLETED AT THIS TIME, NO CHANGES NOTED FROM NURSE REPORT, PT AAXO4, NO DISTRESS OR COMPLAINTS VOICED, VSS, WILL MONITOR FOR CHANGES
--- NOTE | 2019-09-14 21:00 | NUR ---
PT RESTING BED WATCHING TV, NO DISTRESS NOTED
--- NOTE | 2019-09-14 23:00 | NUR ---
PT REASSESSMENT COMPLETED AT THIS TIME, NO CHANGES NOTED FROM PREVIOUS EXAM, VSS, WILL MONITOR FOR CHANGES
[2019-09-15] VITALS (24 sets, daily range): BP systolic 105–162; BP diastolic 57–80
--- NOTE | 2019-09-15 01:00 | NUR ---
pt resting in bed with eyes closed, resp even and nonlabored, vss, will monitor for change
--- NOTE | 2019-09-15 03:00 | NUR ---
PT REASSESSMENT COMPLETED AT THIS TIME, NO CHANGES NOTED FROM PREVIOUS EXAM, VSS, WILL MONITOR FOR CHANGES
[2019-09-15 06:02] LABS: HEMATOCRIT 25.6 % (36.0-48.0); HEMOGLOBIN 8.1 g/dL (12-16); MCH 30.3 pg (26.0-34.0); MCHC 31.6 g/dL (31.0-37.0); MCV 95.9 fL (80.0-100.0); RBC 2.67 10x6/uL (4.00-5.40); WBC 6.2 10x3/uL (4.8-10.8)
--- NOTE | 2019-09-15 06:20 | NUR ---
PT GIVEN HCG BATH THIS AM AND ASSISTED TO THE BEDSIDE CHAIR, PT DENIES COMPLAINTS OR DISTRESS
[2019-09-15 06:31] LABS: ALBUMIN 2.3 g/dL (3.4-5.0); ALKALINE PHOSPHATASE 54 U/L (30-120); ALT (SGPT) 42 U/L (10-68); BILIRUBIN - TOTAL 0.46 mg/dL (0.2-1.3); CALC OSMOLALITY 287 mosm/kg (275-300); CALCIUM 7.6 mg/dL (8.5-10.1); CARBON DIOXIDE 30.5 mmol/L (21.0-32.0); CHLORIDE - SERUM 108 mmol/L (98-107); CREATININE - SERUM 0.7 mg/dL (0.6-1.3); GLUCOSE 122 mg/dL (74-106); POTASSIUM - SERUM 3.4 mmol/L (3.5-5.1); PROTEIN - SERUM 5.5 g/dL (6.4-8.2); SODIUM 144 mmol/L (136-145); UREA NITROGEN 12 mg/dL (7-18); eGFR NON AFRICAN AMERICAN 89 mL/min (90-120)
--- NOTE | 2019-09-15 07:48 | NUR ---
DR. BAKER WAS CALLED AND NOTIFED OF LOW POTASSIUM, ORDERD TO GIVEN THE 10 MEQ PER PROTOCOL AND HE WOULD ADDRESS IT WHEN HE MAKES ROUNDS
--- NOTE | 2019-09-15 18:28 | NUR ---
0715-RECIEED AWAKE AND ALERT UP IN CHAIR-SR ON MONITOR-KCL RIDER COMPLETING 1030-AMBULATED WITH PHYSICAL THERAPY AND IN RM-WITHOUT DIFFICULTY-SR ON MONITOR 1230-DR BAKER AT BEDSIDE--ORDERS RECIEVED-FOLY CATH D/C'D ORDERED 1430-R CORDIS/IJ D/C'D ORDERED 1630-AMBULATNG EASILY IN RM-VOIDED WITHOUT DIFFICUTY
--- NOTE | 2019-09-15 19:00 | NUR ---
Patient assessment complete at this time, no changes noted from nurse report. Patient is awake alert oriented x4 sitting in the bed, patient denies any complaints or distress at this time. Vital signs are stable, patient advised to use call light as needed, will monitor for changes.
--- NOTE | 2019-09-15 21:00 | NUR ---
Patient resting in the bed, patient denies any distress or discomfort at this time. Patient advised to call for assistance, no distress noted we will monitor for changes.
--- NOTE | 2019-09-15 23:00 | NUR ---
PT REASSESSMENT COMPLETED AT THIS TIME, NO CHANGES NOTED FROM PREVIOUS EXAM, VSS
[2019-09-16] VITALS (15 sets, daily range): BP systolic 96–146; BP diastolic 56–99
--- NOTE | 2019-09-16 01:00 | NUR ---
PT RESTING IN BED WITH EYES, RESP EVEN AND NON LABORED, VSS
--- NOTE | 2019-09-16 03:00 | NUR ---
PT REASSESSMENT COMPLETED AT THIS TIME, NO CHANGES NOTED FROM PREVIOUS EXAM, VSS
--- NOTE | 2019-09-16 05:40 | NUR ---
PT GIVEN CHG BATH AND PATIENT ASSISSTED UP TO BEDSIDE CHAIR
[2019-09-16 05:47] LABS: HEMATOCRIT 29.6 % (36.0-48.0); HEMOGLOBIN 9.2 g/dL (12-16); MCH 29.9 pg (26.0-34.0); MCHC 31.1 g/dL (31.0-37.0); MCV 96.1 fL (80.0-100.0); MEAN PLATELET VOLUME 8.9 fL (7.4-10.4); RBC 3.08 10x6/uL (4.00-5.40); RDW 13.1 % (11.5-14.5); WBC 5.8 10x3/uL (4.8-10.8)
[2019-09-16 06:02] LABS: ALBUMIN 2.4 g/dL (3.4-5.0); ALKALINE PHOSPHATASE 56 U/L (30-120); ALT (SGPT) 39 U/L (10-68); BILIRUBIN - TOTAL 0.53 mg/dL (0.2-1.3); CALC OSMOLALITY 282 mosm/kg (275-300); CALCIUM 8.1 mg/dL (8.5-10.1); CARBON DIOXIDE 27.4 mmol/L (21.0-32.0); CHLORIDE - SERUM 109 mmol/L (98-107); CREATININE - SERUM 0.6 mg/dL (0.6-1.3); GLUCOSE 116 mg/dL (74-106); POTASSIUM - SERUM 3.7 mmol/L (3.5-5.1); PROTEIN - SERUM 5.8 g/dL (6.4-8.2); SODIUM 142 mmol/L (136-145); UREA NITROGEN 9 mg/dL (7-18); eGFR NON AFRICAN AMERICAN > 90 mL/min (90-120)
--- NOTE | 2019-09-16 14:32 | NUR ---
[id number]-LVOFH AND ALERT-SITTING UP IN CHAIR-TOLERATING WELL- 0830-BREAKFEST TRAY TAKEN 1030-AMBULATING 1330-DR BAKER AT BEDSIDE-SIDNEY DRAIN D/C'D PER PROTOCOL-DRG DONE
--- NOTE | 2019-09-16 19:00 | NUR ---
PT ASSESSMENT COMPLETED AT THIS TIME, NO CHANGES NOTED FROM NURSE REPORT, PT AAXO4 SITTING IN THE BED, PT DENIES ANY COMPLAINTS, VSS, WILL MONITOR FOR CHANGES
--- NOTE | 2019-09-16 20:59 | NUR ---
PT RESTING IN BED, NO DISTRESS NOTED, PT DENIES COMPLAINTS
--- NOTE | 2019-09-16 23:00 | NUR ---
Patient reassessment completed this time, no change noted from previous exam. Vital signs are stable, will continue to monitor for change.
[2019-09-17] VITALS (12 sets, daily range): BP systolic 118–156; BP diastolic 61–76
--- NOTE | 2019-09-17 01:00 | NUR ---
Patient resting with eyes closed, respirations even and unlabored. Vital signs stable, no distress noted.
--- NOTE | 2019-09-17 03:00 | NUR ---
Patient reassessment complete this time, no change noted from previous exam. Patient vital signs continue be stable, will continue monitor for changes.
--- NOTE | 2019-09-17 06:15 | NUR ---
PT UP TO BEDSIDE CHAIR, PT DENIES COMPLAINTS, PT WAS OFFERED A CHG BATH AT THIS TIME, PT STATES THAT SHE WAS SUPPOSED TO GO HOME TODAY AND THAT SHE WOULD JUST WAIT.
--- NOTE | 2019-09-17 09:16 | NUR ---
0700 PT RECIEVED UP IN CHAIR ALERT AND ORIENTED VSS DENIES PAIN, SEE SHIFT ASSESSMENT FOR DETAILS 0900 TOOK AM MEDS WITHOUT DIFFICULTY, REFUSED BREAKFAST
--- NOTE | 2019-09-17 09:50 | NUR ---
Nutrition Follow-up: POD 6 CABG. Refused breakfast this AM 2/2 diarrhea. Diet: Cardiac, Ensure TID PO intake: 58% avg x 6 meals Wt: 167.5# (09/16); 179.6# (09/13); 167# (09/10) Labs noted: Glu 116, Ca 8.1, Alb 2.4 Meds noted: Protonix, Micro K -Encourage PO intake and honor food preferences within diet restrictions. -Monitor wt. -RD following.
[2019-09-17] MEDS ORDERED: LOPRESSOR25 MG PO (11:50)
[2019-09-17] MEDS ORDERED: AMIODARONE HCL200 MG PO (11:50)
[2019-09-17] MEDS ORDERED: ASPIRIN EC81 M1 PO (11:51)
--- NOTE | 2019-09-17 13:39 | NUR ---
1100 TPM WIRES REMOVED BY DR LAURA
--- NOTE | 2019-09-17 14:28 | NUR ---
DC INSTRUCTIONS REVIEWED BY MYSELF AND DR AG NURSE TOMYNI, PT AND DENY ALL QUESTIONS
--- NOTE | 2019-09-17 14:55 | NUR ---
PT DCD WITH AT [id number]
--- NOTE | 2019-09-18 09:33 | MORECARE ---
CASE MANAGEMENT DISCHARGE SUMMARY PATIENT: MATT SANCHEZ UNIT: [id number] ADM DATE: 09/11/19 AGE: 64 : 51 SEX: F ROOM/BED: D[facility] AUTHOR: LOUIS CORONADO PHYSICIAN: REFERRING PHYSICIAN: VEL LAURA MD DATE OF SERVICE: 09/18/19 Discharge Plan Patient Name: MATT SANCHEZ Facility: [facility]:[place] : 1955 Planned Disposition: Home Anticipated Discharge Date: Discharge Date: 09/17/2019 Expected LOS: Initial Reviewer: [email or web address] Initial Review Date: 09/11/2019 Generated: 09/18/19 10:32 am Comments DCP- Discharge Planning Updated by [email or web address]: Jocy Helton on 09/13/19 7:[address] Patient Name: MATT SANCHEZ Admission Status: Elective Accout number: [id number] Admission Date: 09-11-2019 : 1955 Admission Diagnosis:ATHSCL HEART DISEASE OF [place] CORONARY ARTERY W/O ANG Attending: VEL LAURA Current LOS: 2 Anticipated DC Date: Planned Disposition: Home Primary Insurance: OUT OF STATE MEDICARE HMO Discharge Planning Comments: CM met with patient to complete initial dc planning assessment. CM educated patient on the CM role and verbal consent given by patient to complete assessment. Patient lives at home with family. Patient is independent. At discharge patient plans to return home and feels this is a safe discharge. CM discussed availability of home health, rehab services, and medical equipment. Patient will have family to transport home. Patient may need walk test if requiring 02. Patient denied known discharge needs at this time. CM will continue to follow and will assist as needed with dc plans/needs. Instrument Maker Apprentice: Jocy Helton DCPIA - Discharge Planning Initial Assessment Updated by [email or web address]: Jocy Helton on 09/13/19 8:31 pm * Is the patient Alert and Oriented? Yes * How many steps to enter\exit or inside your home? * PCP Dr. Fabian Horne * Pharmacy [facility] [place] * Preadmission Environment Home with Family * ADLs Independent * Equipment None * List name and contact numbers for known caregivers / representatives who currently or will assist patient after discharge: LIBAN SANCHEZ - SPOUSE - [phone] * Verbal permission to speak to the caregivers and representatives has been obtained from the patient. Yes * Community resources currently utilized None * Additional services required to return to the preadmission environment? No * Can the patient safely return to the preadmission environment? Yes * Has this patient been hospitalized within the prior 30 days at any hospital? No Last DP export: 09/13/19 7:40 pm Patient Name: MATT SANCHEZ Page [id number] at 0933 All edits/amendments must be made on the electronic document DICTATION DATE: 09/18/19931 SAW HANDLE ASSEMBLER: GOLDIE 09/18/19931 RPT#: [id number] DC DATE:09/17/19 STATUS: DIS IN [facility] [address] [place] [address] END OF REPORT
== END 2019-09-17 14:45 | disposition home or self-care (01) | DRG 236 ==
LOC: D.SDCHOLD 09-11 05:10 → D.CVICU 09-11 05:10 → D.SDCHOLD 09-11 07:30 → D.CVICU 09-11 10:24
PROVIDERS: ADMIT Thoracic Surgery (Cardiothoracic Vascular Surgery); ATTEND Thoracic Surgery (Cardiothoracic Vascular Surgery)
PROC: 021109W Bypass Coronary Artery, Two Arteries from Aorta with Autologous Venous Tissue, Open Approach (ICD-10-PCS; 2019-09-11)
PROC: 06BP4ZZ Excision of Right Saphenous Vein, Percutaneous Endoscopic Approach (ICD-10-PCS; 2019-09-11)
PROC: 5A1221Z Performance of Cardiac Output, Continuous (ICD-10-PCS; 2019-09-11)
PROC: B24BZZ4 Ultrasonography of Heart with Aorta, Transesophageal (ICD-10-PCS; 2019-09-11)
PROC: 02100Z9 Bypass Coronary Artery, One Artery from Left Internal Mammary, Open Approach (ICD-10-PCS; principal; 2019-09-11 07:30)
DX: I25.10 Atherosclerotic heart disease of native coronary artery without angina pectoris (principal); D62 Acute posthemorrhagic anemia; I48.91 Unspecified atrial fibrillation; R00.0 Tachycardia, unspecified; I10 Essential (primary) hypertension; K21.9 Gastro-esophageal reflux disease without esophagitis

== ENCOUNTER → 2019-10-03 07:28 | Outpatient (CLI) | payer MEDICARE ==
[2019-09-12 11:09] VITALS: BMI 31.0
[~2019-10-03 07:28] MED LIST changes: +AMIODARONE HCL200 MG PO; +ASPIRIN EC81 M1 PO; +LOPRESSOR25 MG PO
[2019-10-03 08:06] LABS: BASOPHILS 0.7 % (0-2); EOSINOPHILS 3.3 % (0-7); HEMATOCRIT 34.7 % (36.0-48.0); HEMOGLOBIN 10.6 g/dL (12-16); IMMATURE GRANULOCYTES 0.3 % (0-5); LYMPHOCYTES 21.9 % (15-50); MCH 29.5 pg (26.0-34.0); MCHC 30.5 g/dL (31.0-37.0); MCV 96.7 fL (80.0-100.0); MEAN PLATELET VOLUME 8.7 fL (7.4-10.4); MONOCYTES 7.9 % (2-11); NEUTROPHILS 65.9 % (40-80); PLATELET COUNT 353 10x3/uL (130-400); RBC 3.59 10x6/uL (4.00-5.40); RDW 13.4 % (11.5-14.5); WBC 7.3 10x3/uL (4.8-10.8)
[2019-10-03 08:11] LABS: ANION GAP 9.4 mmol/L (8-16); CALCIUM 8.8 mg/dL (8.5-10.1); CARBON DIOXIDE 30.5 mmol/L (21.0-32.0); CREATININE - SERUM 1.1 mg/dL (0.6-1.3); POTASSIUM - SERUM 3.9 mmol/L (3.5-5.1)
== END | disposition home or self-care (01) ==
LOC: D.LAB 07:28
PROVIDERS: ATTEND Thoracic Surgery (Cardiothoracic Vascular Surgery)
DX: I25.10 Atherosclerotic heart disease of native coronary artery without angina pectoris (principal)